=== PATIENT | female | born 1955 | race Caucasian/White ===

== ENCOUNTER 2019-12-24 14:26 | Emergency (ER) | payer MEDICARE, OTHER ==
[~2019-12-24] VITALS: Ht 160 cm; Wt 67.7 kg
[~2019-12-24 14:26] MED LIST: ATOR20TA PO; LEVO0.155 PO; NAPR-54 PO; OXYB5TAB43 PO; RANI-287 PO
[2019-12-24 14:32] VITALS: BP 91/54
[2019-12-24] MEDS: HYDROcodone/APAP 5/325 MG 1 TAB TAB PO ONE (15:25)
[2019-12-24 15:45] VITALS: BP 91/54
== END 2019-12-24 15:45 | disposition home or self-care (01) ==
LOC: MED 14:26
DX: S63.501A Unspecified sprain of right wrist, initial encounter (principal); E07.9 Disorder of thyroid, unspecified; Z88.0 Allergy status to penicillin; Z79.899 Other long term (current) drug therapy; W19.XXXA Unspecified fall, initial encounter; Y93.89 Activity, other specified; Y92.89 Other specified places as the place of occurrence of the external cause; Y99.8 Other external cause status
CPT/HCPCS: 73110; 73130; 99284

== ENCOUNTER 2021-08-05 22:31 | Emergency (ER) | payer MEDICARE, OTHER ==
[~2021-08-05] VITALS: Ht 157.5 cm; Wt 66.7 kg
[2021-08-05 22:50] VITALS: BP 160/111
[2021-08-05] MEDS ORDERED: NACL 0.9% 2,000 ML IV ONE (22:55)
[2021-08-05] MEDS ORDERED: cefTRIAXone 2,000 MG in DEXTROSE 5% 100 ML IV ONE (22:55)
--- NOTE | 2021-08-05 23:00 | NUR ---
RECEIVED IN BED 3 WITH C/O UTI SX X4-5MTHS PMH: HYPOTHYROID, THYROIDECTOMY, 2 STROKES ALLERGIES: PENICILLINS
[2021-08-05 23:31] LABS: HEMATOCRIT 39.7 % (36-48); HEMOGLOBIN 13.2 g/dL (12.0-16.0); MEAN CORPUSCULAR HEMOGLOBIN 32 pg (27-31); MEAN CORPUSCULAR HGB CONC 33 g/dL (33-37); MEAN CORPUSCULAR VOLUME 97.4 fL (80-94); PLATELET COUNT (AUTO) 277 K/uL (140-450); RED BLOOD CELL COUNT(AUTO) 4.07 MIL/uL (4.20-5.40); RED CELL DISTRIBUTION WIDTH 14.4 % (11.6-13.7); WHITE BLOOD COUNT (AUTO) 9.9 K/uL (4.8-10.8)
[2021-08-05] MEDS ORDERED: cefTRIAXone 2,000 MG VIAL ONE (23:36)
[2021-08-05 23:48] LABS: ALBUMIN 3.7 g/dL (3.4-5.0); ANION GAP 8.5 (8-16); CARBON DIOXIDE 29.8 mmol/L (21-32); CREATININE 0.9 mg/dL (0.6-1.3); POTASSIUM 3.3 mmol/L (3.5-5.1); TOTAL BILIRUBIN 0.9 mg/dL (0.0-1.0)
[2021-08-05 23:50] LABS: LYMPHOCYTES % (MANUAL) 11 % (20-46); MONOCYTES % (MANUAL) 1 % (5-12)
--- NOTE | 2021-08-06 | NUR ---
UNABLE TO PROVIDE URINE AT THIS TIME
--- NOTE | 2021-08-06 01:00 | NUR ---
RESTING IN BED WITH EYES CLOSED, RESPIRATIONS REGULAR AND UNLABORED
[2021-08-06] MEDS ORDERED: ONDANSETRON 4 MG TAB PO ONE (01:30)
--- NOTE | 2021-08-06 01:54 | NUR ---
UA TO LAB
[2021-08-06 01:58] LABS: BILIRUBIN,URINE NEGATIVE (NEGATIVE); BLOOD, URINE 3+ (NEGATIVE); COLOR,URINE YELLOW (YELLOW); LEUKOCYTE ESTERASE ,URINE 2+ (NEGATIVE); NITRITE, URINE POSITIVE (NEGATIVE); UGLUCOSE NEGATIVE (NEGATIVE)
[2021-08-06 02:14] LABS: APPEARANCE,URINE SLIGHTLY CLOUDY (CLEAR)
[2021-08-06 02:15] LABS: RBC,URINE 11-20 (MOD) /HPF (0-5); WBC,URINE TOO MANY TO COUNT /HPF (0-5)
[2021-08-06] MEDS ORDERED: NITR100C7 PO (02:39)
[2021-08-06 03:15] VITALS: BP 160/111
--- NOTE | 2021-08-07 08:37 | NUR ---
PRELIMINARY RESULTS GIVEN TO VIDA SALDIVAR FOR REVEIW
== END 2021-08-06 03:15 | disposition home or self-care (01) ==
LOC: MED 22:31
DX: N39.0 Urinary tract infection, site not specified (principal); I10 Essential (primary) hypertension; Z86.39 Personal history of other endocrine, nutritional and metabolic disease; Z98.890 Other specified postprocedural states; Z79.899 Other long term (current) drug therapy; Z79.1 Long term (current) use of non-steroidal anti-inflammatories (NSAID); Z88.0 Allergy status to penicillin
CPT/HCPCS: 36415; 71045; 80053; 81001; 83605; 85025; 87040; 87086; 93005; 96361; 96365; 99285; J0696; J7030; Q0092